=== PATIENT | male | born 1965 | race African-American/Black ===

== ENCOUNTER 2016-12-08 22:47 | Emergency (ER) | payer SELFPAY ==
[~2016-12-08] VITALS: Ht 182.9 cm; Wt 80.0 kg
[2016-12-08 22:48] VITALS: BP 122/58; PULSE 107; RESP 16; TEMP 99; O2SAT 95
--- NOTE | 2016-12-08 23:01 | PD ---
Physical Exam Date Seen by Provider: Dec 08, 2016 Time Seen by Provider: 22:59 Data Data Last Documented VS Vital Signs Date Time Temp Pulse Resp B/P Pulse Ox O2 Delivery O2 Flow Rate FiO2 12/08/16 22:48 99.0 107 16 122/58 95 Room Air [facility] Supervised Visit with OJEL: No Narrative Course 51 YO M with complaint of SOB, dizziness and headache x 3 hours. Onset sudden. O2 sats 95% ORA in triage. Vitals reviewed. Patient seen in triage. Awaiting bed placement. Rachael Jack Dec 08, 2016 23:01
[2016-12-08] MEDS ORDERED: SODIUM CHLORIDE 0.9% FLUSH 10 ML FLUSH IVF PRN (23:15)
[2016-12-08] MEDS ORDERED: ONDANSETRON HCL 4 MG/2 ML VIAL IVP ONE (23:15)
[2016-12-08 23:30] VITALS: O2SAT 94
[2016-12-08 23:33] VITALS: BP_SYST 105; BP_SYST 108; BP_SYST 111; BP_DIAS 55; BP_DIAS 56; BP_DIAS 59; RESP 16; RESP 18
--- NOTE | 2016-12-08 23:43 | RADRPT ---
EXAM DATE/TIME: 12/08/2016 23:10 [facility] COMPARISON: No previous studies available for comparison. INDICATIONS : Pt c/o chest pain, headache, and dizziness x 2 hours prior to arrival. MEDICAL HISTORY : None. SURGICAL HISTORY : None. ENCOUNTER: Initial ACUITY: 1 day PAIN SCORE: 7/10 LOCATION: Bilateral chest FINDINGS: Single AP view of the chest. The lungs are clear. Cardiomediastinal silhouette within normal limits. No evidence of pleural effusion or pneumothorax. CONCLUSION: No acute cardiopulmonary disease identified. Trace Watts MD on December 08, 2016 at 23:36 Board Certified Radiologist. This report was verified electronically.
[2016-12-08 23:50] LABS: AUTOMATED NEUTROPHIL # 1.6 TH/MM3 (1.8-7.7); BASOPHIL # 0.1 TH/MM3 (0-0.2); BASOPHIL % 1.3 % (0.0-2.0); EOSINOPHIL # 0.4 TH/MM3 (0-0.4); EOSINOPHIL % 8.8 % (0.0-4.0); HEMATOCRIT 35.1 % (39.0-51.0); HEMO FLAGS DIFF FINAL; LYMPH % 39.6 % (9.0-44.0); LYMPHOCYTE # 1.8 TH/MM3 (1.0-4.8); MEAN CORPUSCULAR HEMOGLOBIN 32.6 PG (27.0-34.0); MEAN CORPUSCULAR HGB CONC 34.4 % (32.0-36.0); MONO % 14.7 % (0.0-8.0); NEUT % 35.6 % (16.0-70.0); PLATELET COUNT 339 TH/MM3 (150-450); RED BLOOD COUNT 3.69 MIL/MM3 (4.50-5.90); RED CELL DISTRIBUTION WIDTH 14.9 % (11.6-17.2); WHITE BLOOD COUNT 4.4 TH/MM3 (4.0-11.0)
[2016-12-09 00:04] LABS: PROTHROMBIN TIME - PATIENT 10.6 SEC (9.8-11.6)
--- NOTE | 2016-12-09 00:14 | RADRPT ---
EXAM DATE/TIME: 12/08/2016 23:58 [facility] COMPARISON: No previous studies available for comparison. INDICATIONS : Headache with dizziness. RADIATION DOSE: 39.29 CTDIvol (mGy) MEDICAL HISTORY : ETOH abuse SURGICAL HISTORY : None. ENCOUNTER: Initial ACUITY: 1 day PAIN SCALE: 6/10 LOCATION: cranial TECHNIQUE: Multiple contiguous axial images were obtained of the head. Using automated exposure control and adj ustment of the mA and/or kV according to patient size, radiation dose was kept as low as reasonably a chievable to obtain optimal diagnostic quality images. FINDINGS: CEREBRUM: The ventricles are normal for age. No evidence of midline shift, mass lesion, hemorrhage or acute in farction. No extra-axial fluid collections are seen. Basal ganglia calcification. POSTERIOR FOSSA: The cerebellum and brainstem are intact. The 4th ventricle is midline. The cerebellopontine angle i s unremarkable. EXTRACRANIAL: Moderate severity partial opacification of the ethmoid sinuses and air-fluid level of the right maxil cesia sinus. SKULL: The calvaria is intact. No evidence of skull fracture. CONCLUSION: 1. No acute intracranial findings. 2. Ethmoid and maxillary sinusitis with air-fluid level in the right maxillary sinus suggesting acute sinusitis. Trace Watts MD on December 09, 2016 at 0:08 Board Certified Radiologist. This report was verified electronically.
[2016-12-09 00:15] LABS: CREATINE KINASE 112 U/L (39-308)
[2016-12-09 00:19] LABS: ANION GAP 11 MEQ/L (5-15); BICARBONATE 25.7 MEQ/L (21.0-32.0); BLOOD UREA NITROGEN 10 MG/DL (7-18); CHLORIDE 109 MEQ/L (98-107); GLOMERULAR FILTRATION RATE 96 ML/MIN (>89); MAGNESIUM 2.1 MG/DL (1.5-2.5); POTASSIUM 3.6 MEQ/L (3.5-5.1); SODIUM (NA) 146 MEQ/L (136-145)
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
[2016-12-09 00:27] LABS: CKMB LESS THAN 0.5 NG/ML (0.5-3.6)
[2016-12-09] MEDS ORDERED: cefTRIAXone INJ 1,000 MG in SODIUM CHLORIDE 0.9% INJ 100 ML IV ONE (00:30)
[2016-12-09] MEDS ORDERED: SODIUM CHLOR 0.9% 1000 ML INJ 1,000 ML IV ONE (00:30)
[2016-12-09] MEDS ORDERED: THIAMINE INJ 100 MG in SODIUM CHLORIDE 0.9% INJ 100 ML IV ONE (00:30)
[2016-12-09 02:13] LABS: BLOOD, URINE NEG (NEG); COMMENT (UR) CULT NOT INDICATED; CULTURE IF INDICATED CULT NOT INDICATED; GLUCOSE,URINE TRACE mg/dL (NEG); KETONE, URINE TRACE mg/dL (NEG); NITRITE,URINE NEG (NEG); URINE COLOR YELLOW (YELLW/STRAW)
[2016-12-09] MEDS ORDERED: BACT800T5 PO (02:57)
--- NOTE | 2016-12-09 12:13 | EKG ---
Date Performed: 12/08/2016 Time Performed: 23:26:47 PTAGE: 51 years EKG: SINUS TACHYCARDIA LEFT VENTRICULAR HYPERTROPHY AND ST-T CHANGE ABNORMAL ECG NO PREVIOUS TRACING DOCTOR: Mu Arrieta Interpretating Date/Time 12/09/2016 12:11:07
== END 2016-12-09 06:20 | disposition home or self-care (01) ==
LOC: NEPC 22:47
DX: J01.00 Acute maxillary sinusitis, unspecified (principal); J01.20 Acute ethmoidal sinusitis, unspecified; F10.10 Alcohol abuse, uncomplicated; R42 Dizziness and giddiness; Y90.8 Blood alcohol level of 240 mg/100 ml or more; R00.0 Tachycardia, unspecified; I51.7 Cardiomegaly; R94.31 Abnormal electrocardiogram [ECG] [EKG]; R07.9 Chest pain, unspecified
CPT/HCPCS: 70450; 71010; 80048; 80307; 81001; 82550; 82552; 83735; 84484; 85025; 85610; 85730; 93005; 96361; 96365; 96366; 96375; 99285; J0696; J2405; J3411; J7030